=== PATIENT | female | born 1950 | race Caucasian/White ===

== ENCOUNTER 2016-11-04 22:07 | Emergency (ER) | payer MEDICARE, BC ==
--- NOTE | 2016-11-04 23:24 | EDM.PDOC ---
[id number] 4d MEDICAL Time Seen by Provider: 11/04/16 22:15 Source of Information: Reports: Patient, Family History Limitations: Reports: No Limitations - History of Present Illness INITIAL COMMENTS - FREE TEXT/NARRATIVE: 66-year-old female with a history of left-sided CVA initially had some mild right-sided weakness which has resolved. She underwent a left carotid endarterectomy within the last 2 weeks and is healing well but tonight wasn't feeling well, had some hand and lower extremity numbness and became very anxious. No headache. She should check her blood pressure and it was 180/100 so came into the emergency room. Her symptoms have resolved and she is already feeling better. Her initial blood pressure on arrival was 170/70. Onset: Sudden Severity: Mild Associated Symptoms: Reports: Other (Some paresthesias of her hands and feet). Denies: Fever/Chills, Headaches, Shortness of Breath neck/incision site Pain Score (Numeric/FACES): 8 - Related Data Allergies Allergy/AdvReac Type Severity Reaction Status Date / Time scopolamine Allergy Delusions Verified 11/04/16 22:24 Sulfa (Sulfonamide Allergy Nausea Verified 11/04/16 22:24 Antibiotics) Home Meds: Home Meds Carvedilol [Coreg] 6.25 mg PO BID 11/04/16 [History] LORazepam [Ativan] 1 mg PO Q6HR PRN 11/04/16 [History] Lisinopril [Prinivil] 10 mg PO BID 11/04/16 [History] Pantoprazole Sodium [Protonix] 40 mg PO BID 11/04/16 [History] atorvaSTATin [Lipitor] 40 mg PO BEDTIME 11/04/16 [History] hydrALAZINE [Apresoline] 25 mg PO TID 11/04/16 [History] oxyCODONE 5 mg PO Q4HR PRN 11/04/16 [History] Past Medical History HEENT History: Reports: Impaired Vision Cardiovascular History: Reports: Afib 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 History: Reports: Chronic Constipation 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: Musculoskeletal History: Reports: Gout, Neck Pain, Chronic Neurological History: Reports: CVA, Headaches, Chronic Psychiatric History: Reports: Anxiety Hematologic History: Reports: Other (See Below) Other Hematologic History: Von Willebrands disease - Infectious Disease History Infectious Disease History: Reports: Chicken Pox, Measles, Mumps, Rubella Other Infectious Disease History: unknown - Past Surgical History Cardiovascular Surgical History: Reports: Carotid Endarterectomy, Other (See Below) Other Cardiovascular Surgeries/Procedures: carotid surgery Saturday10/30/16 GI Surgical History: Reports: Appendectomy, Bariatric Procedure, Other (See Below) Other GI Surgeries/Procedures: sigmoid colon resection Female Surgical History: Reports: Hysterectomy, Other (See Below) Other Female Surgeries/Procedures: mass removed from left breast Endocrine Surgical History: Reports: Other (See Below) Other Endocrine Surgeries/Procedures: Removed mass from thyroid Social & Family History - Tobacco Use Smoking Status *Q: Never Smoker - Caffeine Use Caffeine Use: Reports: None - Recreational Drug Use Recreational Drug Use: No ED ROS GENERAL - Review of Systems Review Of Systems: See Below Constitutional: Reports: Malaise. Denies: Fever, Chills HEENT: Reports: Other (She has some swelling along the left face and some drooping of the left perioral area from her surgery) Cardiovascular: Reports: No Symptoms GI/Abdominal: Reports: Constipation Skin: Reports: Other (A small amount of bruising over the recent left neck surgical area) Neurological: Denies: Headache ED EXAM, GENERAL - Physical Exam Exam: See Below Exam Limited By: No Limitations General Appearance: Alert, No Apparent Distress Eye Exam: Bilateral Eye: EOMI Throat/Mouth: Other (She does have some weakness of the left perioral muscles) Respiratory/Chest: No Respiratory Distress, Lungs Clear Cardiovascular: Regular Rate, Rhythm GI/Abdominal: Soft, Non-Tender Extremities: No Pedal Edema Neurological: Alert, Oriented, No Motor/Sensory Deficits Psychiatric: Anxious EKG INTERPRETATION Rhythm: NSR Course - Vital Signs Last Recorded V/S: Last Vital Signs Temp 97.4 F 11/04/16 22:08 Pulse 66 11/04/16 23:14 Resp 16 11/04/16 23:14 BP 130/76 11/04/16 23:14 Pulse Ox 94 L 11/04/16 23:14 - Re-Assessments/Exams Free Text/Narrative Re-Assessment/Exam: 11/05/16 00:24 An EKG was done was normal, patient continued to be reassured and her blood pressure normalized within 30 minutes. No further workup was necessary. Departure - Departure Time of Disposition: 23:49 Disposition: Home, Self-Care 01 Condition: good Clinical Impression: Reactive hypertension, Anxiety about health, Right-sided cerebrovascular accident (CVA) - Discharge Information Instructions: Hypertension, [id number], Panic Attacks Referrals: Kasi Chen MD [Primary Care Provider] - Forms: ED Department Discharge Care Plan Goals: Continue your regular medications and get some rest. Return any time if concerns.
[2016-11-05 00:06] VITALS: BP 130/76
== END 2016-11-04 23:35 | disposition home or self-care (01) ==
LOC: JP.ED 22:07
DX: I63.9 Cerebral infarction, unspecified (principal); I10 Essential (primary) hypertension; I48.91 Unspecified atrial fibrillation; Z88.2 Allergy status to sulfonamides; Z88.8 Allergy status to other drugs, medicaments and biological substances; Z79.899 Other long term (current) drug therapy; Z98.84 Bariatric surgery status
CPT/HCPCS: 93005; 93010; 99282; 99285-25

== ENCOUNTER 2017-06-24 08:23 | Emergency (ER) | payer MEDICARE, BC ==
--- NOTE | 2017-06-24 09:11 | EDM.PDOC ---
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 She has a very sore area on the upper edge of the sternum, pain with movement of the left arm but no pain with breathing. No diaphoresis or shortness of breath although she has had a cough for the past week which is improving. Onset: Unknown/Unsure Severity: Moderate Worsens with: Reports: Other (Palpation of the upper chest causes symptoms), Movement Left Neck Pain Score (Numeric/FACES): 8 - Related Data Allergies Allergy/AdvReac Type Severity Reaction Status Date / Time scopolamine Allergy Delusions Verified 06/24/17 08:34 Sulfa (Sulfonamide Allergy Nausea Verified 06/24/17 08:34 Antibiotics) Home Meds: Home Meds Carvedilol [Coreg] 6.25 mg PO BID 11/04/16 [History] LORazepam [Ativan] 1 mg PO Q6HR PRN 11/04/16 [History] Lisinopril [Prinivil] 10 mg PO BID 11/04/16 [History] Pantoprazole Sodium [Protonix] 40 mg PO BID 11/04/16 [History] atorvaSTATin [Lipitor] 40 mg PO BEDTIME 11/04/16 [History] hydrALAZINE [Apresoline] 25 mg PO TID 11/04/16 [History] oxyCODONE 5 mg PO Q4HR PRN 11/04/16 [History] Past Medical History HEENT History: Reports: Impaired Vision Cardiovascular History: Reports: Afib, High Cholesterol, Hypertension 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 History: Reports: Chronic Constipation 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: Musculoskeletal History: Reports: Gout, Neck Pain, Chronic Neurological History: Reports: CVA, Headaches, Chronic Psychiatric History: Reports: Anxiety Hematologic History: Reports: Other (See Below) Other Hematologic History: Von Willebrands disease - Infectious Disease History Infectious Disease History: Reports: Chicken Pox, Measles, Mumps, Rubella Other Infectious Disease History: unknown - Past Surgical History Cardiovascular Surgical History: Reports: Carotid Endarterectomy, Other (See Below) Other Cardiovascular Surgeries/Procedures: carotid surgery Saturday10/30/16 GI Surgical History: Reports: Appendectomy, Bariatric Procedure, Cholecystectomy , Other (See Below) Other GI Surgeries/Procedures: sigmoid colon resection Female Surgical History: Reports: Hysterectomy, Other (See Below) Endocrine Surgical History: Reports: Other (See Below) Other Endocrine Surgeries/Procedures: Removed mass from thyroid Other Oncologic Surgeries/Procedures: MASS REMOVED FROM L BREAST/NON MALIIGNANT Social & Family History - Tobacco Use Smoking Status *Q: Unknown Ever Smoked - Caffeine Use Caffeine Use: Reports: None - Recreational Drug Use Recreational Drug Use: No ED ROS GENERAL - Review of Systems Review Of Systems: See Below Constitutional: Denies: Fever, Chills, Malaise HEENT: Reports: No Symptoms Respiratory: Denies: Shortness of Breath Cardiovascular: Reports: Chest Pain, Palpitations (Occasional palpitations chronically) GI/Abdominal: Denies: Abdominal Pain : Reports: No Symptoms Musculoskeletal: Reports: Other (Has a history of recurring joint pain with hemarthrosis especially the left knee) Skin: Reports: No Symptoms Neurological: Denies: Dizziness, Headache Psychiatric: Reports: Anxiety ED EXAM, GENERAL - Physical Exam Exam: See Below Exam Limited By: No Limitations General Appearance: Alert, No Apparent Distress Eye Exam: Bilateral Eye: Normal Inspection Head: Atraumatic Neck: Other (Some palpation with tenderness along the sternocleidomastoid on the left side but especially at the sternal clavicular joint) Respiratory/Chest: No Respiratory Distress, Lungs Clear Cardiovascular: Regular Rate, Rhythm GI/Abdominal: Soft, Non-Tender Back Exam: No: Vertebral Tenderness Extremities: No: Pedal Edema Neurological: Alert, Oriented Psychiatric: Normal Affect, Normal Mood Skin Exam: Warm, Dry Course - Vital Signs Last Recorded V/S: Last Vital Signs Temp 99.0 F 06/24/17 08:30 Pulse 69 06/24/17 09:08 Resp 9 L 06/24/17 09:08 BP 164/79 H 06/24/17 09:08 Pulse Ox 97 06/24/17 09:08 - Orders/Labs/Meds Orders: Active Orders 24 hr Category Date Time Status EKG Documentation Completion [RC] ASDIRECTED Care 06/24/17 09:02 Active EKG 12 Lead [EK] Routine Ther 06/24/17 09:02 Ordered Labs: Laboratory Tests 06/24/17 06/24/17 06/24/17 Range/Units 09:10 09:10 09:10 WBC 8.8 (4.5-11.0) K/uL RBC 4.44 (3.30-5.50) M/uL Hgb 13.6 D (12.0-15.0) g/dL Hct 40.6 (36.0-48.0) % MCV 91 (80-98) fL MCH 31 (27-31) pg MCHC 34 (32-36) % Plt Count 250 (150-400) K/uL Neut % (Auto) 62 (36-66) % Lymph % (Auto) 22 L (24-44) % Cecil % (Auto) 14 H (2-6) % Eos % (Auto) 2 (2-4) % Baso % (Auto) 1 (0-1) % Sodium 139 L (140-148) mmol/L Potassium 4.2 (3.6-5.2) mmol/L Chloride 101 (100-108) mmol/L Carbon Dioxide 27 (21-32) mmol/L Anion Gap 15.2 H (5.0-14.0) mmol/L BUN 17 D (7-18) mg/dL Creatinine 0.9 (0.6-1.0) mg/dL Est Cr Clr Drug Dosing 54.58 mL/min Estimated GFR (MDRD) > 60 (>60) Glucose 106 (74-106) mg/dL Calcium 9.0 (8.5-10.1) mg/dL Troponin I < 0.017 (0.000-0.056) ng/mL - Re-Assessments/Exams Free Text/Narrative Re-Assessment/Exam: 06/24/17 09:12 EKG was done which was normal and unchanged from 5-17. For reassurance a two- view chest x-ray, troponin, CBC and BMP were obtained. 06/24/17 09:42 Chest x-ray was normal, labs were normal. Patient is given a take an anti- inflammatory before bedtime and increase activity as tolerated. Recheck 2-3 days if not improving satisfactorily. Departure - Departure Time of Disposition: 10:08 Disposition: Home, Self-Care 01 Condition: Good Clinical Impression: Sternoclavicular joint pain Qualifiers: Laterality: left Qualified Code(s): M25.512 - Pain in left shoulder Instructions: Joint Pain, [id number] Referrals: Kasi Chang MD [Primary Care Provider] - Forms: ED Department Discharge Additional Instructions: May be beneficial. Anti-inflammatories such as naproxen or ibuprofen, especially at bedtime will help. Increase activity as tolerated and consider rechecking in 3-4 days if not improving satisfactorily, or return anytime sooner if worsening. Care Plan Goals: Heating pad to joint along with anti-inflammatories may help. Increase activity as tolerated and consider rechecking in 2-4 days if not improving satisfactorily. An anti-inflammatory at bedtime may be the most beneficial. - My Orders Last 24 Hours: My Active Orders 06/24/17 09:02 EKG Documentation Completion [RC] ASDIRECTED EKG 12 Lead [EK] Routine - Assessment/Plan Last 24 Hours: My Active Orders 06/24/17 09:02 EKG Documentation Completion [RC] ASDIRECTED EKG 12 Lead [EK] Routine
[2017-06-24 09:53] VITALS: BP 164/79
--- NOTE | 2017-06-24 10:41 | CR ---
Chest 2V HISTORY: Dyspnea COMPARISON: None FINDINGS: Cardiac size and pulmonary vessels normal. Lungs are clear. No effusions. Impression: No acute pulmonary disease.
== END 2017-06-24 10:00 | disposition home or self-care (01) ==
LOC: JP.ED 08:23
DX: M25.512 Pain in left shoulder (principal); I10 Essential (primary) hypertension; F41.9 Anxiety disorder, unspecified; E78.00 Pure hypercholesterolemia, unspecified; Z88.2 Allergy status to sulfonamides; Z88.8 Allergy status to other drugs, medicaments and biological substances; Z86.73 Personal history of transient ischemic attack (TIA), and cerebral infarction without residual deficits
CPT/HCPCS: 36415; 71046; 71046-26; 80048; 84484; 85025; 93005; 93010; 99284-25; 99285

== ENCOUNTER 2019-02-18 05:53 | Day surgery (SDC) | payer MEDICARE ==
[2019-02-18] MEDS ORDERED: Nozin Nasal Sanitizer NASBOTH ONE (06:15)
[2019-02-18] MEDS ORDERED: Lactated Ringers 1,000 ML IV SCH (06:30)
[2019-02-18] MEDS ORDERED: ceFAZolin 1 GM in Premix Bag 1 BAG IV ONE (06:30)
[2019-02-18] MEDS ORDERED: Bupivacaine 0.5% 30 ML SDV ONE (06:59)
[2019-02-18] MEDS ORDERED: fentaNYL 250 MCG/5 ML SDV ONE (07:35)
[2019-02-18] MEDS ORDERED: Succinylcholine 200 MG/10 ML MDV ONE (07:36)
[2019-02-18] MEDS ORDERED: Rocuronium 50 MG/5 ML Vial ONE (07:36)
[2019-02-18] MEDS ORDERED: Ondansetron 4 MG/2 ML SDV ONE (07:36)
[2019-02-18] MEDS ORDERED: Dexamethasone 4 MG/ML SDV ONE (07:36)
[2019-02-18] MEDS ORDERED: Propofol 200 MG/20 ML SDV ONE (07:36)
[2019-02-18] MEDS ORDERED: Acetaminophen/HYDROcodone 325-5 MG Tab PO PRN (09:17)
[2019-02-18 10:59] VITALS: BP 172/91
--- NOTE | 2019-02-19 08:02 | OR ---
DATE OF PROCEDURE: 02/18/2019 SURGEON: Maximiliano Yu MD PREOPERATIVE DIAGNOSIS: Medial meniscus tear, left knee. POSTOPERATIVE DIAGNOSES: 1. Degenerative meniscus, left knee, medial. 2. Chondromalacia, medial femoral condyle, grade 3. 3. Chondromalacia, patellofemoral joint, grade 3. ANESTHESIA: General. PROCEDURE: 1. Arthroscopy, left knee, with debridement of medial meniscus. 2. Chondroplasty, medial femoral condyle. INDICATIONS: Ms. Jordan is a 68-year-old female with a history of persistent left knee pain, particularly in the medial aspect. She has failed conservative treatment. X-ray and MRI are consistent with degenerative tear of the medial meniscus. She now presents to the operating room for arthroscopic evaluation, partial meniscectomy as needed. Risks, benefits, and potential complications were discussed. DESCRIPTION OF PROCEDURE: After adequate anesthesia was obtained, the patient was placed supine with the tourniquet about the left upper thigh. Left leg was prepped and draped in a sterile fashion. Leg was exsanguinated, and tourniquet inflated to 300 mmHg pressure. Standard inferior, medial, and lateral portals were established. Patellofemoral joint was inspected. This revealed intact articular cartilage on the patella with some minimal softening. Patella tracked well with no evidence of significant malalignment. Trochlear groove showed grade 3 changes with a trough down the middle of the trochlea and a more extended area of grade 2 and grade 3 changes more distally. The scope was positioned into the medial compartment and grade 3 changes of the medial femoral condyle were noted. Degenerative fraying of the medial meniscus was present in the midbody and posterior horn, extending into the root. No significant peripheral tear or unstable portions of the meniscus were noted. Shaver was used to debride the edge of the meniscus and to perform a chondroplasty over the medial femoral condyle, removing loose articular fragments. All loose fragments were removed from the medial joint. Intercondylar notch revealed an intact ACL and PCL. Lateral compartment showed very minimal degenerative fraying of the lateral meniscus and predominantly intact articular cartilage with some mild softening of the femoral condyle. The knee was inspected once again. No other abnormalities were identified. All loose fragments were removed. The knee was drained. Scope was withdrawn. Port sites were closed in a standard fashion, and a sterile dressing was applied. The patient tolerated procedure well. There were no complications. Taken from the operating room in stable condition. Maximiliano Yu MD /[id number]
== END 2019-02-18 11:10 | disposition home or self-care (01) ==
LOC: JP.SDS 05:53
PROVIDERS: ATTEND Specialist
DX: M23.322 Other meniscus derangements, posterior horn of medial meniscus, left knee (principal); M23.332 Other meniscus derangements, other medial meniscus, left knee; M22.42 Chondromalacia patellae, left knee; I10 Essential (primary) hypertension; E78.5 Hyperlipidemia, unspecified; I48.91 Unspecified atrial fibrillation; D68.0 Von Willebrand disease; E07.9 Disorder of thyroid, unspecified; Z88.6 Allergy status to analgesic agent; Z88.2 Allergy status to sulfonamides; Z88.5 Allergy status to narcotic agent; Z88.8 Allergy status to other drugs, medicaments and biological substances; Z86.79 Personal history of other diseases of the circulatory system; Z79.899 Other long term (current) drug therapy
CPT/HCPCS: 29881; A9270; J0330; J0690; J1100; J2405; J2704; J3010; J3490; J7120

== ENCOUNTER 2019-03-29 16:29 | Emergency (ER) | payer MEDICARE ==
[2019-03-29 16:41] VITALS: BP 176/67; PULSE 76
--- NOTE | 2019-03-29 17:41 | EDM.PDOC ---
ED HPI GENERAL MEDICAL PROBLEM - General Chief Complaint: Eye Problems Stated Complaint: BLURRED VISION, HIGH BP Time Seen by Provider: 03/29/19 17:00 Source of Information: Reports: Patient, RN Notes Reviewed History Limitations: Reports: No Limitations - History of Present Illness INITIAL COMMENTS - FREE TEXT/NARRATIVE: 60-year-old female presents emergency department today with complaint of change in vision in her right eye she states 2 days ago she had a headache then visualized a black ribbon in her right eye I went to bed the following day then she woke up she seemed flashing lights in the right eye described as a lightning then it was like a curtain came over her right eye and is now cloudy - Related Data Allergies Allergy/AdvReac Type Severity Reaction Status Date / Time scopolamine Allergy Delusions Verified 03/29/19 16:48 Sulfa (Sulfonamide AdvReac Nausea Verified 03/29/19 16:48 Antibiotics) Home Meds: Home Meds LORazepam [Ativan] 1 mg PO Q6HR PRN 11/04/16 [History] Lisinopril [Prinivil] 20 mg PO DAILY 11/04/16 [History] atorvaSTATin [Lipitor] 40 mg PO BEDTIME 11/04/16 [History] Furosemide [Lasix] 20 mg PO DAILY 02/10/19 [History] traZODone 50 mg PO BEDTIME 02/18/19 [History] Celecoxib [CeleBREX] 200 mg PO DAILY PRN #60 cap 03/26/19 [Rx] Past Medical History HEENT History: Reports: Impaired Vision Cardiovascular History: Reports: Afib, High Cholesterol, Hypertension 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 History: Reports: Chronic Constipation 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: Musculoskeletal History: Reports: Gout, Neck Pain, Chronic, Other (See Below) Other Musculoskeletal History: s/p L knee scope 02/18/19 Neurological History: Reports: CVA, Headaches, Chronic Psychiatric History: Reports: Anxiety Hematologic History: Reports: Other (See Below) Other Hematologic History: Von Willebrands disease - Infectious Disease History Infectious Disease History: Reports: Chicken Pox, Measles, Mumps, Rubella Other Infectious Disease History: unknown - Past Surgical History Cardiovascular Surgical History: Reports: Carotid Endarterectomy, Other (See Below) Other Cardiovascular Surgeries/Procedures: carotid surgery Saturday10/30/16 GI Surgical History: Reports: Appendectomy, Cholecystectomy, Other (See Below) Other GI Surgeries/Procedures: sigmoid colon resection Female Surgical History: Reports: Hysterectomy, Other (See Below) Endocrine Surgical History: Reports: Other (See Below) Other Endocrine Surgeries/Procedures: Removed mass from thyroid Other Oncologic Surgeries/Procedures: MASS REMOVED FROM L BREAST/NON MALIIGNANT Social & Family History - Family History Respiratory: Reports: COPD : Reports: Renal Calculus OBGYN: Reports: Dysfunctional uterine bleeding, Endometriosis Oncologic: Reports: Bone, Breast, Colon - Tobacco Use Smoking Status *Q: Never Smoker - Caffeine Use Caffeine Use: Reports: None ED ROS GENERAL - Review of Systems Review Of Systems: See Below HEENT: Reports: Vision Change ED EXAM GENERAL W FULL EYE - Physical Exam Exam: See Below Exam Limited By: No Limitations General Appearance: Alert, WD/WN, No Apparent Distress Visual Acuity (R) 20/: 40 Visual Acuity (L) 20/: 25 With Correction: Yes Eyelids: Bilateral: Normal Appearance Conjunctiva & Sclera: Bilateral: Normal Appearance Cornea Exam: Bilateral: Normal Appearance Extraocular Movements: Bilateral: Intact Pupils: Normal Accommodation Pupillary Size: Bilateral: 5 mm Pupillary Reaction: Bilateral: Brisk Anterior Chamber: Bilateral: Normal Appearance Posterior Chamber: Bilateral: Normal Funduscopic Course - Vital Signs Last Recorded V/S: Last Vital Signs Temp 97.0 F 03/29/19 16:59 Pulse 76 03/29/19 16:59 Resp 16 03/29/19 16:59 BP 176/67 H 03/29/19 16:59 Pulse Ox 97 03/29/19 16:59 Departure - Departure Time of Disposition: 17:43 Disposition: DC/Tfer to Other 70 Condition: Fair Clinical Impression: Change in vision - Discharge Information Referrals: Kasi Chang MD [Primary Care Provider] - Additional Instructions: Please report to Dr. Pugh's office at [address] [facility] he has your cell phone number he's expecting you about 7 PM this evening - Assessment/Plan Plan: Assessment Acuity = acute Site and laterality = change in vision concern for retinal detachment Etiology = unknown Manifestations = unknown Location of injury = Home Lab values = none Plan Called discussed case with Dr. Pugh ophthalmology on-call Cata Conleyford he kindly agreed to evaluate the patient in his office this evening, she is transported via private vehicle with her This note was dictated using [employer] voice recognition software please call with any questions on syntax or grammar.
== END 2019-03-29 17:52 | disposition other institution (70) ==
LOC: JP.ED 16:29
DX: H53.8 Other visual disturbances (principal); I10 Essential (primary) hypertension; E78.00 Pure hypercholesterolemia, unspecified; F41.9 Anxiety disorder, unspecified; Z88.2 Allergy status to sulfonamides; Z88.8 Allergy status to other drugs, medicaments and biological substances; Z79.899 Other long term (current) drug therapy; Z86.73 Personal history of transient ischemic attack (TIA), and cerebral infarction without residual deficits
CPT/HCPCS: 99283

== ENCOUNTER 2019-06-22 11:07 | Emergency (ER) | payer MEDICARE ==
--- NOTE | 2019-06-22 11:42 | EDM.PDOC ---
ED HPI GENERAL MEDICAL PROBLEM - General Chief Complaint: Chest Pain Stated Complaint: CHEST DISCOMFORT,ARM PAIN Time Seen by Provider: 06/22/19 11:37 Source of Information: Reports: Patient, Family, Old Records, RN Notes Reviewed History Limitations: Reports: No Limitations - History of Present Illness INITIAL COMMENTS - FREE TEXT/NARRATIVE: 69-year-old female presents emergency department today complaint of heavy lymph nodes and chest pressure, she states she has been ill for about 3 days the reason she presented to the emergency department today if she "just cannot take it anymore". She is a vague and difficult historian does have a history of hypertension which is usually controlled uses a water pill intermittently did have headache last night with elevated blood pressure does have a history of breast tumor status post resection. chest pressure Pain Score (Numeric/FACES): 8 - Related Data Allergies Allergy/AdvReac Type Severity Reaction Status Date / Time scopolamine Allergy Delusions Verified 06/22/19 11:24 Sulfa (Sulfonamide AdvReac Nausea Verified 06/22/19 11:24 Antibiotics) Home Meds: Home Meds LORazepam [Ativan] 1 mg PO Q6HR PRN 11/04/16 [History] Lisinopril [Prinivil] 20 mg PO DAILY 11/04/16 [History] atorvaSTATin [Lipitor] 40 mg PO BEDTIME 11/04/16 [History] Furosemide [Lasix] 20 mg PO DAILY 02/10/19 [History] traZODone 50 mg PO BEDTIME 02/18/19 [History] Celecoxib [CeleBREX] 200 mg PO DAILY PRN #60 cap 03/26/19 [Rx] Past Medical History HEENT History: Reports: Impaired Vision Cardiovascular History: Reports: Afib, High Cholesterol, Hypertension 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 History: Reports: Chronic Constipation 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: Musculoskeletal History: Reports: Gout, Neck Pain, Chronic, Other (See Below) Other Musculoskeletal History: s/p L knee scope 02/18/19 Neurological History: Reports: CVA, Headaches, Chronic Psychiatric History: Reports: Anxiety Hematologic History: Reports: Other (See Below) Other Hematologic History: Von Willebrands disease - Infectious Disease History Infectious Disease History: Reports: Chicken Pox, Measles, Mumps, Rubella Other Infectious Disease History: unknown - Past Surgical History Head Surgeries/Procedures: Reports: None Cardiovascular Surgical History: Reports: Carotid Endarterectomy, Other (See Below) Other Cardiovascular Surgeries/Procedures: carotid surgery Saturday10/30/16 GI Surgical History: Reports: Appendectomy, Cholecystectomy, Other (See Below) Other GI Surgeries/Procedures: sigmoid colon resection Female Surgical History: Reports: Hysterectomy, Other (See Below) Endocrine Surgical History: Reports: Other (See Below) Other Endocrine Surgeries/Procedures: Removed mass from thyroid Musculoskeletal Surgical History: Reports: Arthroscopic Knee Other Oncologic Surgeries/Procedures: MASS REMOVED FROM L BREAST/NON MALIIGNANT Social & Family History - Family History Respiratory: Reports: COPD : Reports: Renal Calculus OBGYN: Reports: Dysfunctional uterine bleeding, Endometriosis Oncologic: Reports: Bone, Breast, Colon - Tobacco Use Smoking Status *Q: Never Smoker - Caffeine Use Caffeine Use: Reports: None ED ROS GENERAL - Review of Systems Review Of Systems: See Below Constitutional: Reports: Fatigue. Denies: Fever, Chills HEENT: Reports: No Symptoms Respiratory: Reports: No Symptoms Cardiovascular: Reports: Chest Pain GI/Abdominal: Reports: No Symptoms : Reports: No Symptoms Musculoskeletal: Reports: No Symptoms Skin: Reports: No Symptoms Neurological: Reports: No Symptoms ED EXAM, GENERAL - Physical Exam Exam: See Below Exam Limited By: No Limitations General Appearance: Alert, WD/WN, No Apparent Distress Throat/Mouth: No Airway Compromise Head: Atraumatic, Normocephalic Neck: Normal Inspection, Supple, Non-Tender, Full Range of Motion Respiratory/Chest: No Respiratory Distress, Lungs Clear, Normal Breath Sounds, No Accessory Muscle Use, Other (Tenderness to palpation mid axillary line T5-6 region) Cardiovascular: Regular Rate, Rhythm, No Murmur GI/Abdominal: Soft, Non-Tender Back Exam: Normal Inspection, Full Range of Motion. No: CVA Tenderness (R), CVA Tenderness (L) Extremities: Normal Inspection, No Pedal Edema Course - Vital Signs Last Recorded V/S: Last Vital Signs Temp 98.2 F 06/22/19 11:26 Pulse 77 06/22/19 11:26 Resp 15 06/22/19 11:26 BP 152/75 H 06/22/19 11:26 Pulse Ox 97 06/22/19 11:26 - Orders/Labs/Meds Orders: Active Orders 24 hr Category Date Time Status Cardiac Monitoring [RC] .As Directed Care 01/06/20 11:38 Active EKG Documentation Completion [RC] ASDIRECTED Care 06/22/19 11:39 Active EKG 12 Lead [EK] Stat Ther 06/22/19 11:39 Ordered Labs: Laboratory Tests 06/22/19 06/22/19 06/22/19 Range/Units 11:48 11:48 11:48 WBC 7.1 (4.5-11.0) K/uL RBC 4.21 (3.30-5.50) M/uL Hgb 13.0 (12.0-15.0) g/dL Hct 39.4 (36.0-48.0) % MCV 94 (80-98) fL MCH 31 (27-31) pg MCHC 33 (32-36) % Plt Count 228 (150-400) K/uL Neut % (Auto) 71 H (36-66) % Lymph % (Auto) 17 L (24-44) % [place] % (Auto) 11 H (2-6) % Eos % (Auto) 1 L (2-4) % Baso % (Auto) 0 (0-1) % Sodium 136 L (140-148) mmol/L Potassium 3.9 (3.6-5.2) mmol/L Chloride 102 (100-108) mmol/L Carbon Dioxide 26 (21-32) mmol/L Anion Gap 11.9 (5.0-14.0) mmol/L BUN 13 (7-18) mg/dL Creatinine 0.8 (0.6-1.0) mg/dL Est Cr Clr Drug Dosing TNP Estimated GFR (MDRD) > 60 (>60) Glucose 107 H (74-106) mg/dL Lactic Acid 0.9 (0.4-2.0) mmol/L Calcium 8.3 L (8.5-10.1) mg/dL Total Bilirubin 0.2 (0.2-1.0) mg/dL AST 20 D (15-37) U/L ALT 25 (12-78) U/L Alkaline Phosphatase 94 (46-116) U/L Troponin I < 0.017 (0.000-0.056) ng/mL Total Protein 6.7 (6.4-8.2) g/dL Albumin 3.6 (3.4-5.0) g/dL Globulin 3.1 (2.3-3.5) g/dL Albumin/Globulin Ratio 1.2 (1.2-2.2) Urine Color (YELLOW) Urine Appearance (CLEAR) Urine pH (5.0-8.0) Ur Specific [place] (1.008-1.030) Urine Protein (NEGATIVE) mg/dL Urine Glucose (UA) (NEGATIVE) mg/dL Urine Ketones (NEGATIVE) mg/dL Urine Occult Blood (NEGATIVE) Urine Nitrite (NEGATIVE) Urine Bilirubin (NEGATIVE) Urine Urobilinogen (0.2-1.0) EU/dL Ur Leukocyte Esterase (NEGATIVE) Urine RBC (0-5) Urine WBC (0-5) Ur Epithelial Cells Amorphous Sediment Urine Bacteria Urine Mucus 06/22/19 Range/Units 11:59 WBC (4.5-11.0) K/uL RBC (3.30-5.50) M/uL Hgb (12.0-15.0) g/dL Hct (36.0-48.0) % MCV (80-98) fL MCH (27-31) pg MCHC (32-36) % Plt Count (150-400) K/uL Neut % (Auto) (36-66) % Lymph % (Auto) (24-44) % [place] % (Auto) (2-6) % Eos % (Auto) (2-4) % Baso % (Auto) (0-1) % Sodium (140-148) mmol/L Potassium (3.6-5.2) mmol/L Chloride (100-108) mmol/L Carbon Dioxide (21-32) mmol/L Anion Gap (5.0-14.0) mmol/L BUN (7-18) mg/dL Creatinine (0.6-1.0) mg/dL Est Cr Clr Drug Dosing Estimated GFR (MDRD) (>60) Glucose (74-106) mg/dL Lactic Acid (0.4-2.0) mmol/L Calcium (8.5-10.1) mg/dL Total Bilirubin (0.2-1.0) mg/dL AST (15-37) U/L ALT (12-78) U/L Alkaline Phosphatase (46-116) U/L Troponin I (0.000-0.056) ng/mL Total Protein (6.4-8.2) g/dL Albumin (3.4-5.0) g/dL Globulin (2.3-3.5) g/dL Albumin/Globulin Ratio (1.2-2.2) Urine Color Yellow (YELLOW) Urine Appearance Clear (CLEAR) Urine pH 5.5 (5.0-8.0) Ur Specific [place] 1.015 (1.008-1.030) Urine Protein Negative (NEGATIVE) mg/dL Urine Glucose (UA) Negative (NEGATIVE) mg/dL Urine Ketones Negative (NEGATIVE) mg/dL Urine Occult Blood Negative (NEGATIVE) Urine Nitrite Negative (NEGATIVE) Urine Bilirubin Negative (NEGATIVE) Urine Urobilinogen 0.2 (0.2-1.0) EU/dL Ur Leukocyte Esterase Negative (NEGATIVE) Urine RBC Not seen (0-5) Urine WBC Not seen (0-5) Ur Epithelial Cells Not seen Amorphous Sediment Not seen Urine Bacteria Not seen Urine Mucus Few Departure - Departure Time of Disposition: 13:10 Disposition: Home, Self-Care 01 Condition: Fair Clinical Impression: Atypical chest pain Referrals: Kasi Chang MD [Primary Care Provider] - Forms: ED Department Discharge Additional Instructions: Continue with your regular medications, please followup with your primary care provider in 3-5 days if not better, please call return to the emergency department with worsening of symptoms. Sepsis Event Note - Evaluation Sepsis Screening Result: No Definite Risk - Focused Exam Vital Signs: Vital Signs Temp Pulse Resp BP Pulse Ox 06/22/19 11:26 98.2 F 77 15 152/75 H 97 06/22/19 11:23 98.2 F 77 15 152/75 H 97 Date Exam was Performed: 06/22/19 Time Exam was Performed: 13:09 - My Orders Last 24 Hours: My Active Orders 06/22/19 11:38 Cardiac Monitoring [RC] .As Directed 06/22/19 11:39 EKG Documentation Completion [RC] ASDIRECTED EKG 12 Lead [EK] Stat - Assessment/Plan Last 24 Hours: My Active Orders 06/22/19 11:38 Cardiac Monitoring [RC] .As Directed 06/22/19 11:39 EKG Documentation Completion [RC] ASDIRECTED EKG 12 Lead [EK] Stat Plan: Assessment Acuity = acute Site and laterality = atypical chest pain Etiology = unknown Manifestations = none Location of injury = Home Lab values = CBC, CMP, troponin, lactic acid, urinalysis EKG and chest x-ray all within normal limits Plan I did review lab tests with her we did not find any etiology for her symptoms that she is feeling recommend she follow-up with her primary care in 3 to 5 days for reevaluation This note was dictated using [email or web address] voice recognition software please call with any questions on syntax or grammar.
--- NOTE | 2019-06-22 12:15 | CR ---
CHEST: 2 view CLINICAL HISTORY:Chest pain COMPARISON:06/24/2017 FINDINGS: The heart size, pulmonary vascular and hilar structures are normal. No infiltrate effusion or pneumothorax is seen. IMPRESSION: No acute cardiopulmonary process.
[2019-06-22 13:24] VITALS: BP 152/75; PULSE 77
== END 2019-06-22 13:20 | disposition home or self-care (01) ==
LOC: JP.ED 11:07
DX: R07.89 Other chest pain (principal); I10 Essential (primary) hypertension; I48.91 Unspecified atrial fibrillation; Z86.73 Personal history of transient ischemic attack (TIA), and cerebral infarction without residual deficits; F41.9 Anxiety disorder, unspecified; M10.9 Gout, unspecified; Z90.710 Acquired absence of both cervix and uterus; Z88.2 Allergy status to sulfonamides; Z88.8 Allergy status to other drugs, medicaments and biological substances; Z79.899 Other long term (current) drug therapy
CPT/HCPCS: 36415; 71046; 71046-26; 80053; 81001; 83605; 84484; 85025; 93005; 93010; 99283; 99285-25

== ENCOUNTER 2021-03-06 08:01 | Day surgery (SDC) | payer MEDICARE ==
[~2021-03-06 08:01] MED LIST: Bupivacaine 0.5% 30 ML SDV ONE
[2021-03-06] MEDS ORDERED: Nozin Nasal Sanitizer NASBOTH SCH (09:00)
[2021-03-06] MEDS ORDERED: Lactated Ringers 1,000 ML IV SCH (09:30)
[2021-03-06] MEDS ORDERED: ceFAZolin 2 GM in Sodium Chloride 0.9% 100 ML IV ONE (10:15)
[2021-03-06] MEDS ORDERED: ceFAZolin 2 GM in Premix Bag 1 BAG IV ONE (10:15)
[2021-03-06] MEDS ORDERED: Glycopyrrolate 0.2 MG/ML 5 ML MDV ONE (10:43)
[2021-03-06] MEDS ORDERED: Ondansetron 4 MG/2 ML SDV ONE (10:43)
[2021-03-06] MEDS ORDERED: Propofol 200 MG/20 ML SDV ONE (10:43)
[2021-03-06] MEDS ORDERED: Dexamethasone 4 MG/ML SDV ONE (10:43)
[2021-03-06] MEDS ORDERED: Rocuronium 50 MG/5 ML Vial ONE ×2 (10:43→13:24)
[2021-03-06] MEDS ORDERED: Neostigmine Methylsulfate 1 MG/ML 5 ML Syringe ONE (10:43)
[2021-03-06] MEDS ORDERED: fentaNYL 250 MCG/5 ML SDV ONE ×2 (10:44→13:02)
[2021-03-06] MEDS: Bupivacaine 0.5% 50 ML MDV ONE ×2 (13:15→14:15)
[2021-03-06] MEDS ORDERED: Lactated Ringers 1,000 ML ONE (13:55)
[2021-03-06] MEDS ORDERED: Ondansetron 4 MG/2 ML SDV IVPUSH ONE (16:27)
[2021-03-06] MEDS ORDERED: Acetaminophen/HYDROcodone 325-5 MG Tab PO ONE (16:30)
[2021-03-06 18:05] VITALS: BP 178/83; PULSE 67
--- NOTE | 2021-03-20 22:32 | OR ---
DATE OF PROCEDURE: 03/06/2021 SURGEON: Maximiliano Yu MD PREOPERATIVE DIAGNOSES: 1. Degenerative labral tear, right hip. 2. Effusion, right hip. 3. Trochanteric bursitis, possible abductors tendon tear, right hip. POSTOPERATIVE DIAGNOSES: 1. Degenerative labral tear, right hip, anterior. 2. Chondrocalcinosis, right hip with effusion. 3. Trochanteric bursitis. 4. Intra-articular synovitis. PROCEDURES: 1. Arthroscopy of right hip with debridement of labrum. 2. Decompression of effusion. 3. Lateral hip space arthroscopy with debridement of bursa. BUSINESS SERVICES SPECIALIST SALES: GRACIA Nevarez ANESTHESIA: Spinal with sedation. INDICATIONS: Elaine is a 70-year-old female with a history of fairly rapid progression of acute right hip pain. She has had difficulty with weightbearing, sensation of giving, difficulty flexing her right hip pain, pain interfering with sleep and any activities. Examination and imaging are consistent with a fairly significant effusion in the right hip. Evidence of some mild degenerative changes, trochanteric bursitis, and possible small gluteus medius tendon tear versus tendinitis or tendinosis. Due to significant pain and no improvement with nonoperative measures. She is taken to the operating room for evaluation of the right hip and possible repair of abductor tendon. Risks, benefits, and potential complications of the procedure were discussed. DESCRIPTION OF PROCEDURE: After adequate anesthesia was obtained, the patient was placed on the fracture table supine. A large padded perineal post was utilized. The right hip was prepped and draped in a sterile fashion. Gentle counter traction placed on the left leg. Traction was placed on the right leg producing approximately 1 cm of distraction. A long spinal needle was advanced in anterolateral position over the trochanter and into the joint and position confirmed on fluoroscopy. Guidewire was placed through the spinal needle. A small stab incision was made in the skin and the arthroscopic cannula was placed over the guidewire. Upon removal of the obturator hip effusion with normal-appearing synovial fluid was released. This was a fairly significant amount for a hip. The scope was introduced and labrum was identified with some fraying anteriorly and an accessory anterolateral portal was established under direct visualization and fluoroscopic assistance with a spinal needle. A guidewire was placed through the needle. A small stab incision made in the skin and an additional arthroscopy cannula was advanced into the joint. A long handled [place] blade was utilized to make a capsulotomy connecting the two portals. The remainder of the hip was inspected. Again, degenerative changes were noted with fraying of the anterior labrum. Multiple white flecks were present throughout the labrum and articular cartilage consistent with chondrocalcinosis. Articular cartilage of the femoral head was relatively intact with minimal degenerative change. Mild grade 2 changes were noted along the acetabular rim adjacent to the labrum without any areas of full-thickness cartilage loss. Similar changes with chondrocalcinosis noted in the central portion of the acetabulum and again no full- thickness loss on the femoral head or central acetabulum. The scope was switched between the two portals. No other abnormalities were identified. After debriding the torn portion of the labrum, the scope was removed and distraction was released on the hip. Using fluoroscopy and using the anterolateral portal, access was gained to the lateral hip space over the greater trochanter, and an accessory inferior lateral portal was established. Moderate inflammation was noted of the trochanteric bursa, which was fairly well defined. This was debrided using a combination of a shaver and radiofrequency ablation. The trochanter with attachments of the gluteus medius and vastus lateralis was well visualized with no evidence of abductor tendon tear. The tendon was palpated with no areas of softening or evidence of partial-thickness tear. The scope was withdrawn. Port sites were closed with 3-0 Monocryl in an interrupted fashion. Steri-Strips were applied. All port sites were infiltrated with 0.5% Marcaine and the long spinal needle used to infiltrate the hip capsule. A sterile dressing was applied. The patient taken from the operating room in stable condition. Maximiliano Yu MD /[id number] [place]
== END 2021-03-06 18:40 | disposition home or self-care (01) ==
LOC: JP.SDS 08:01 → JP.MS 15:10 → JP.SDS 18:40
PROVIDERS: ATTEND Specialist
DX: S73.191A Other sprain of right hip, initial encounter (principal); S76.312A Strain of muscle, fascia and tendon of the posterior muscle group at thigh level, left thigh, initial encounter; M11.251 Other chondrocalcinosis, right hip; M70.61 Trochanteric bursitis, right hip; M65.88 Other synovitis and tenosynovitis, other site; I10 Essential (primary) hypertension; E78.5 Hyperlipidemia, unspecified; I48.91 Unspecified atrial fibrillation; Z98.890 Other specified postprocedural states; Z90.49 Acquired absence of other specified parts of digestive tract; Z79.899 Other long term (current) drug therapy; Z88.8 Allergy status to other drugs, medicaments and biological substances; Z88.2 Allergy status to sulfonamides
CPT/HCPCS: 29862; 76000; A9270; C1769; J0690; J1100; J2405; J2704; J2710; J3010; J3490; J7120

== ENCOUNTER 2022-03-26 23:25 | Inpatient (IN) | payer MEDICARE ==
[2022-03-27] MEDS ORDERED: Acetaminophen/Codeine 300-30 MG Tab PO ONE ×4 (03:35→23:00)
[2022-03-27] MEDS ORDERED: Sodium Chloride 0.9% 1,000 ML IV ONE (03:40)
[2022-03-27] MEDS ORDERED: atorvaSTATin 20 MG Tab PO ONE (03:40)
[2022-03-27] MEDS ORDERED: LORazepam 1 MG Tab PO ONE ×3 (04:30→23:00)
[2022-03-27] MEDS ORDERED: Enoxaparin 40 MG/0.4 ML Syringe SUBCUT ONE (04:30)
[2022-03-27] MEDS ORDERED: Furosemide 20 MG Tab PO ONE (09:00)
[2022-03-27] MEDS ORDERED: Carvedilol 12.5 MG Tab PO ONE ×2 (09:00→17:00)
[2022-03-27] MEDS ORDERED: Lisinopril 20 MG Tab PO ONE (09:00)
[2022-03-27] MEDS ORDERED: Potassium Chloride 20 MEQ Tab.ER PO ONE ×2 (13:30→17:00)
[2022-03-27] MEDS ORDERED: Acetaminophen 325 MG Tab PO ONE (16:00)
[2022-03-28] MEDS ORDERED: Acetaminophen/Codeine 300-30 MG Tab PO ONE (03:35)
[2022-03-28] MEDS ORDERED: LORazepam 1 MG Tab PO ONE (08:16)
[2022-03-28] MEDS ORDERED: Enoxaparin 40 MG/0.4 ML Syringe SUBCUT ONE (09:00)
[2022-03-28] MEDS ORDERED: Furosemide 20 MG Tab PO ONE (09:00)
[2022-03-28] MEDS ORDERED: Lisinopril 20 MG Tab PO ONE (09:00)
[2022-03-28] MEDS ORDERED: Carvedilol 12.5 MG Tab PO ONE (09:00)
[2022-04-20 10:23] LABS: ESTIMATED GFR 60 mL/min (>60)
[2022-04-20 10:24] LABS: TROPONIN I HIGH SENSITIVITY 11.4 pg/mL (<=60.3)
[2022-04-20 17:32] LABS: ESTIMATED GFR 79 mL/min (>60)
[2022-04-25 05:10] LABS: DOPAMINE SEE SEP RPT; DOPAMINE, URINE SEE SEP RPT; EPINEPHRINE SEE SEP RPT; NOREPINEPHRINE SEE SEP RPT
[2022-04-25 05:11] LABS: CREATININE, URINE SEE SEP RPT; METANEPHRINE/CREATININE RATIO SEE SEP RPT; NORMETANEPHRINE/CREAT. RATIO SEE SEP RPT
== END 2022-03-28 12:05 | disposition home or self-care (01) | DRG 305 ==
LOC: JP.ED 23:25 → JP.ZCENSUS 03-27 02:30
PROVIDERS: ADMIT Hospitalist; ATTEND Hospitalist
DX: I16.1 Hypertensive emergency (principal); E78.5 Hyperlipidemia, unspecified; I10 Essential (primary) hypertension; H53.142 Visual discomfort, left eye; Z88.2 Allergy status to sulfonamides; Z88.1 Allergy status to other antibiotic agents; Z20.822 Contact with and (suspected) exposure to COVID-19
CPT/HCPCS: 36415; 70450; 80048; 80053; 80307; 82384; 82570; 84132; 84484; 84585; 85025; 85610; 85730; 86140; 93005; 96374; 96375; 99285-25; A9270-GY; J1650; J7030; U0002

== ENCOUNTER 2022-10-14 10:00 | Emergency (ER) | payer BC, MEDICARE ==
[2022-10-14 11:00] VITALS: BP 149/60
[2022-10-14] MEDS ORDERED: Sodium Chloride 0.9% 10 ML Syringe FLUSH PRN (11:05)
[2022-10-14] MEDS ORDERED: Sodium Chloride 0.9% 1,000 ML IV STA (11:05)
[2022-10-14] MEDS ORDERED: fentaNYL 100 MCG/2 ML SDV IVPUSH ONE (11:06)
[2022-10-14 11:43] LABS: ESTIMATED GFR 68 mL/min (>60)
[2022-10-14] MEDS ORDERED: Iopamidol 612 MG/ML 100 ML Bottle IV SCH (11:45)
[2022-10-14] MEDS ORDERED: Sodium Chloride 0.9% 50 ML IV SCH (11:45)
[2022-10-14] MEDS ORDERED: HYDROmorphone 0.5 MG/0.5 ML Syringe IVPUSH ONE (13:13)
[2022-10-14 13:25] VITALS: PULSE 55
== END 2022-10-14 13:50 | disposition home or self-care (01) ==
LOC: JP.ED 10:00
DX: N39.0 Urinary tract infection, site not specified (principal); I48.91 Unspecified atrial fibrillation; I10 Essential (primary) hypertension; Z86.73 Personal history of transient ischemic attack (TIA), and cerebral infarction without residual deficits; Z88.5 Allergy status to narcotic agent; Z88.2 Allergy status to sulfonamides; Z88.8 Allergy status to other drugs, medicaments and biological substances; Z79.899 Other long term (current) drug therapy
CPT/HCPCS: 36415; 74177; 74177-26; 80053; 81001; 83605; 83690; 85025; 87086; 87088; 87186; 96361; 96374; 96375; 99283; 99284-25; J1170; J3010; J3490; J7030; Q9967

== ENCOUNTER 2022-10-31 09:18 | Emergency (ER) | payer MEDICARE ==
[2022-10-31] MEDS ORDERED: Ketorolac 30 MG/ML SDV IVPUSH ONE (09:51)
[2022-10-31] MEDS ORDERED: Ondansetron 4 MG/2 ML SDV IVPUSH PRN (09:52)
[2022-10-31] MEDS ORDERED: Sodium Chloride 0.9% 1,000 ML IV SCH (10:00)
[2022-10-31 10:15] LABS: HEMATOCRIT 36.4 % (34.3-46.0); HEMOGLOBIN 12.4 g/dL (11.2-15.5); MEAN CORPUSCULAR HEMOGLOBIN 31.6 pg (31.6-35.5); MEAN CORPUSCULAR HGB CONC 34.1 g/dL (31.6-35.5); MEAN CORPUSCULAR VOLUME 92.6 fL (81.4-99.0); RED BLOOD CELL COUNT 3.93 M/uL (3.77-5.24); WHITE BLOOD CELL COUNT,WBC 12.6 K/uL (3.2-11.0)
[2022-10-31 10:30] LABS: APPEARANCE,URINE CLEAR (CLEAR); BILIRUBIN,URINE NEGATIVE (NEGATIVE); COLOR,URINE YELLOW (YELLOW); GLUCOSE,URINE NEGATIVE (NEGATIVE); KETONES,URINE NEGATIVE (NEGATIVE); LEUKOCYTE ESTERASE,URINE NEGATIVE (NEGATIVE); NITRITE,URINE NEGATIVE (NEGATIVE); OCCULT BLOOD,URINE NEGATIVE (NEGATIVE); PROTEIN,URINE NEGATIVE (NEGATIVE); UROBILINOGEN,URINE 0.2 EU/dL (0.2-1.0)
[2022-10-31 10:38] LABS: AMORPHOUS SEDIMENT,URINE MODERATE; BACTERIA,URINE RARE; EPITHELIAL CELLS,URINE NOT SEEN; MUCUS,URINE MODERATE; RBC,URINE NOT SEEN (0-5); WBC,URINE 0-5 (0-5)
[2022-10-31] MEDS ORDERED: Acetaminophen/Codeine 300-30 MG Tab PO ONE (10:41)
[2022-10-31 10:48] LABS: ALANINE AMINOTRANSFERASE,ALT 113 U/L (12-78); ALKALINE PHOSPHATASE 93 U/L (46-116); ANION GAP 12.5 mmol/L (5.0-14.0); ASPARTATE AMNIOTRANSFERASE,AST 80 U/L (15-37); BILIRUBIN TOTAL 0.4 mg/dL (0.2-1.0); BLOOD UREA NITROGEN,BUN 11 mg/dL (7-18); CALCIUM 8.3 mg/dL (8.5-10.1); CARBON DIOXIDE,CO2 29 mmol/L (21-32); CHLORIDE,CL 99 mmol/L (100-108); CREATININE 0.9 mg/dL (0.6-1.0); EST CRCL DRUG DOSING (CG) 50.84 mL/min; ESTIMATED GFR 68 mL/min (>60); GLUCOSE RANDOM 116 mg/dL (74-106); POTASSIUM,K 3.5 mmol/L (3.6-5.2); SODIUM,NA 137 mmol/L (140-148)
[2022-10-31] MEDS ORDERED: Levofloxacin/Dextrose 5%-Water 250 MG in Premix Bag 1 BAG IV ONE (10:56)
[2022-10-31 13:25] VITALS: BP 113/50; PULSE 62
== END 2022-10-31 13:43 | disposition home or self-care (01) ==
LOC: JP.ED 09:18
DX: N39.0 Urinary tract infection, site not specified (principal); M79.10 Myalgia, unspecified site; I48.91 Unspecified atrial fibrillation; I10 Essential (primary) hypertension; Z79.899 Other long term (current) drug therapy; Z88.8 Allergy status to other drugs, medicaments and biological substances; Z88.5 Allergy status to narcotic agent; Z88.2 Allergy status to sulfonamides; Z90.49 Acquired absence of other specified parts of digestive tract
CPT/HCPCS: 36415; 74176; 80053; 81001; 83605; 84145; 85027; 87040; 96361; 96365; 96375; 99284; 99285; A9270; J1885; J1956; J2405; J7030

== ENCOUNTER 2024-05-26 03:06 | Emergency (ER) | payer MEDICARE ==
[2024-05-26] MEDS: Tranexamic Acid 1,000 MG/10 ML Vial TOP ONE (04:04)
[2024-05-26] MEDS: Tranexamic Acid 1,000 MG/10 ML Vial IVPUSH ONE (04:16)
[2024-05-26 04:17] LABS: BASOPHILS ABSOLUTE AUTO 0.05 K/uL (0.00-0.10); BASOPHILS PERCENT AUTO 0.5 % (0.1-1.3); EOSINOPHILS ABSOLUTE AUTO 0.25 K/uL (0.00-0.40); EOSINOPHILS PERCENT AUTO 2.4 % (0.0-5.4); HEMATOCRIT 35.9 % (34.3-46.0); HEMOGLOBIN 12.2 g/dL (11.2-15.5); IMMATURE GRAN ABSOLUTE AUTO 0.03 K/uL (0.00-0.23); IMMATURE GRAN PERCENT AUTO 0.3 % (0.0-0.7); LYMPHOCYTES ABSOLUTE AUTO 2.52 K/uL (0.8-3.3); LYMPHOCYTES PERCENT AUTO 24.5 % (11.4-47.7); MEAN CORPUSCULAR HEMOGLOBIN 31.6 pg (31.6-35.5); MONOCYTES PERCENT AUTO 11.7 % (3.3-12.6); NEUTROPHILS ABSOLUTE AUTO 6.24 K/uL (1.0-7.6); NEUTROPHILS PERCENT AUTO 60.6 % (40.0-78.1); PLATELET COUNT,PLT 204 K/uL (130-375); RED BLOOD CELL COUNT 3.86 M/uL (3.77-5.24); WHITE BLOOD CELL COUNT,WBC 10.3 K/uL (3.2-11.0)
[2024-05-26] MEDS ORDERED: Naloxone 0.4 MG/ML SDV IVPUSH PRN (04:23)
[2024-05-26] MEDS: HYDROmorphone 0.5 MG/0.5 ML Syringe IVPUSH ONE (04:30)
[2024-05-26 04:32] LABS: ANION GAP 9.2 mmol/L (5.0-14.0); CALCIUM 9.2 mg/dL (8.5-10.1); CREATININE 1.1 mg/dL (0.6-1.0); EST CRCL DRUG DOSING (CG) 40.38 mL/min; POTASSIUM,K 3.9 mmol/L (3.6-5.2)
[2024-05-26] MEDS: Ondansetron 4 MG/2 ML SDV IVPUSH ONE (04:34)
[2024-05-26] MEDS: Lidocaine 1% with EPINEPHrine 1:100,000 20 ML MDV INJECT ONE (06:55)
[2024-05-26 07:21] VITALS: BP 128/59; PULSE 64
== END 2024-05-26 07:52 | disposition home or self-care (01) ==
LOC: JP.ED 03:06
DX: S51.811A Laceration without foreign body of right forearm, initial encounter (principal); I10 Essential (primary) hypertension; E78.00 Pure hypercholesterolemia, unspecified; Z90.49 Acquired absence of other specified parts of digestive tract; Z90.710 Acquired absence of both cervix and uterus; Z86.73 Personal history of transient ischemic attack (TIA), and cerebral infarction without residual deficits; Z88.2 Allergy status to sulfonamides; Z88.6 Allergy status to analgesic agent; Z88.8 Allergy status to other drugs, medicaments and biological substances; Z79.899 Other long term (current) drug therapy; W01.198A Fall on same level from slipping, tripping and stumbling with subsequent striking against other object, initial encounter
CPT/HCPCS: 12004; 12034; 36415; 36430; 73080; 73090; 80048; 85025; 86850; 86900; 86901; 96374; 96375; 99283; 99284; J1171; J2405; P9017

== ENCOUNTER 2024-05-30 11:24 | Emergency (ER) | payer MEDICARE ==
[2024-05-30] MEDS ORDERED: Sodium Chloride 0.9% 10 ML Syringe FLUSH PRN (12:19)
[2024-05-30] MEDS: Tranexamic Acid 1,000 MG in Sodium Chloride 0.9% 50 ML IV ONE (12:40)
[2024-05-30] MEDS: Ondansetron 4 MG/2 ML SDV IVPUSH ONE (14:06)
[2024-05-30] MEDS: fentaNYL 100 MCG/2 ML SDV IVPUSH ONE (14:08)
[2024-05-30 14:28] VITALS: PULSE 62
[2024-05-30 15:16] VITALS: BP 155/75
== END 2024-05-30 15:38 | disposition home or self-care (01) ==
LOC: JP.ED 11:24
DX: R60.0 Localized edema (principal); I10 Essential (primary) hypertension; E78.00 Pure hypercholesterolemia, unspecified; Z90.49 Acquired absence of other specified parts of digestive tract; Z90.710 Acquired absence of both cervix and uterus; Z79.899 Other long term (current) drug therapy; Z79.82 Long term (current) use of aspirin; Z88.2 Allergy status to sulfonamides; Z88.8 Allergy status to other drugs, medicaments and biological substances
CPT/HCPCS: 36415; 36430; 73030; 85018; 86900; 86901; 96365; 96375; 99283; J2405; J3010; J3490; P9017

== ENCOUNTER 2024-06-01 08:50 | Emergency (ER) | payer MEDICARE ==
[2024-06-01 09:08] VITALS: BP 138/63; PULSE 66
[2024-06-01] MEDS: Ondansetron 4 MG Tab.DIS PO ONE (10:15)
[2024-06-01] MEDS: fentaNYL 50 MCG/ML SDV IVPUSH ONE (10:15)
== END 2024-06-01 10:40 | disposition home or self-care (01) ==
LOC: JP.ED 08:50
DX: S50.11XA Contusion of right forearm, initial encounter (principal); I10 Essential (primary) hypertension; Z86.73 Personal history of transient ischemic attack (TIA), and cerebral infarction without residual deficits; Z90.49 Acquired absence of other specified parts of digestive tract; Z90.710 Acquired absence of both cervix and uterus; Z88.2 Allergy status to sulfonamides; Z88.6 Allergy status to analgesic agent; Z88.8 Allergy status to other drugs, medicaments and biological substances; Z79.899 Other long term (current) drug therapy; X58.XXXA Exposure to other specified factors, initial encounter
CPT/HCPCS: 96374; 99283; J3010; Q0162

== ENCOUNTER 2024-09-01 18:24 | Inpatient (IN) | payer MEDICARE ==
[2024-09-01 19:28] LABS: BASOPHILS ABSOLUTE AUTO 0.04 K/uL (0.00-0.10); BASOPHILS PERCENT AUTO 0.4 % (0.1-1.3); EOSINOPHILS ABSOLUTE AUTO 0.02 K/uL (0.00-0.40); EOSINOPHILS PERCENT AUTO 0.2 % (0.0-5.4); HEMATOCRIT 41.5 % (34.3-46.0); HEMOGLOBIN 14.1 g/dL (11.2-15.5); IMMATURE GRAN ABSOLUTE AUTO 0.06 K/uL (0.00-0.23); IMMATURE GRAN PERCENT AUTO 0.6 % (0.0-0.7); LYMPHOCYTES ABSOLUTE AUTO 0.25 K/uL (0.8-3.3); LYMPHOCYTES PERCENT AUTO 2.6 % (11.4-47.7); MEAN CORPUSCULAR HEMOGLOBIN 30.9 pg (31.6-35.5); MEAN CORPUSCULAR VOLUME 90.8 fL (81.4-99.0); MONOCYTES ABSOLUTE AUTO 0.41 K/uL (0.20-0.90); MONOCYTES PERCENT AUTO 4.3 % (3.3-12.6); NEUTROPHILS ABSOLUTE AUTO 8.74 K/uL (1.0-7.6); NEUTROPHILS PERCENT AUTO 91.9 % (40.0-78.1); PLATELET COUNT,PLT 148 K/uL (130-375); RED BLOOD CELL COUNT 4.57 M/uL (3.77-5.24); WHITE BLOOD CELL COUNT,WBC 9.5 K/uL (3.2-11.0)
[2024-09-01] MEDS: Acetaminophen 500 MG Tab PO ONE (19:28)
[2024-09-01 19:30] LABS: APPEARANCE,URINE CLEAR (CLEAR); BILIRUBIN,URINE NEGATIVE (NEGATIVE); COLOR,URINE YELLOW (YELLOW); GLUCOSE,URINE NEGATIVE (NEGATIVE); KETONES,URINE NEGATIVE (NEGATIVE); LEUKOCYTE ESTERASE,URINE SMALL (NEGATIVE); NITRITE,URINE NEGATIVE (NEGATIVE); OCCULT BLOOD,URINE TRACE-INTACT (NEGATIVE); PH,URINE 5.5 (5.0-8.0); PROTEIN,URINE NEGATIVE (NEGATIVE); UROBILINOGEN,URINE 0.2 EU/dL (0.2-1.0)
[2024-09-01] MEDS: cefTRIAXone 1 GM in Sodium Chloride 0.9% 50 ML IV ONE (19:31)
[2024-09-01 19:38] LABS: BACTERIA,URINE FEW; EPITHELIAL CELLS,URINE RARE; RBC,URINE 0-5 (0-5)
[2024-09-01 19:39] LABS: AMORPHOUS SEDIMENT,URINE NOT SEEN; MUCUS,URINE NOT SEEN
[2024-09-01 19:48] LABS: A/G RATIO 1.2 (1.2-2.2); ALANINE AMINOTRANSFERASE,ALT 69 U/L (12-78); ALBUMIN 3.8 g/dL (3.4-5.0); ALKALINE PHOSPHATASE 113 U/L (46-116); ANION GAP 14.5 mmol/L (5.0-14.0); ASPARTATE AMNIOTRANSFERASE,AST 51 U/L (15-37); BILIRUBIN TOTAL 0.3 mg/dL (0.2-1.0); BLOOD UREA NITROGEN,BUN 11 mg/dL (7-18); C-REACTIVE PROTEIN 2.58 mg/dL (<0.50); CARBON DIOXIDE,CO2 27 mmol/L (21-32); CHLORIDE,CL 100 mmol/L (100-108); CREATININE 0.8 mg/dL (0.6-1.0); EST CRCL DRUG DOSING (CG) 55.52 mL/min; ESTIMATED GFR 77 mL/min (>60); GLUCOSE RANDOM 143 mg/dL (74-106); POTASSIUM,K 3.5 mmol/L (3.6-5.2); PROTEIN TOTAL,TP 7.1 g/dL (6.4-8.2); SODIUM,NA 138 mmol/L (140-148)
[2024-09-01] MEDS: Prochlorperazine 10 MG/2 ML SDV IVPUSH ONE (20:30)
[2024-09-01] MEDS: Sodium Chloride 0.9% 80 ML IV SCH (20:43)
[2024-09-01] MEDS: Iopamidol 612 MG/ML 100 ML Bottle IV SCH (20:43)
[2024-09-01] MEDS: metroNIDAZOLE/Normal Saline 500 MG in Premix Bag 1 BAG IV ONE (22:55)
[2024-09-01] MEDS: Sodium Chloride 0.9% 500 ML IV ONE (22:55)
[2024-09-01] MEDS ORDERED: Sennosides/Docusate Sodium 50-8.6 MG Tab PO PRN (23:48)
[2024-09-01] MEDS ORDERED: Ondansetron 4 MG/2 ML SDV IV PRN (23:48)
[2024-09-01] MEDS ORDERED: Sodium Chloride 0.9% 10 ML Syringe FLUSH PRN (23:48)
[2024-09-01] MEDS ORDERED: Magnesium Hydroxide 400 MG/5 ML Susp 30 ML Cup PO PRN (23:48)
[2024-09-01] MEDS ORDERED: Ondansetron 4 MG Tab.DIS PO PRN (23:48)
[2024-09-02] MEDS: Sodium Chloride 0.9% 1,000 ML IV SCH (00:38)
[2024-09-02] MEDS: Potassium Chloride 20 MEQ Tab.ER PO ONE (00:38)
[2024-09-02 05:52] LABS: BASOPHILS ABSOLUTE AUTO 0.03 K/uL (0.00-0.10); BASOPHILS PERCENT AUTO 0.4 % (0.1-1.3); EOSINOPHILS ABSOLUTE AUTO 0.06 K/uL (0.00-0.40); EOSINOPHILS PERCENT AUTO 0.8 % (0.0-5.4); HEMATOCRIT 38.6 % (34.3-46.0); HEMOGLOBIN 13.1 g/dL (11.2-15.5); IMMATURE GRAN ABSOLUTE AUTO 0.04 K/uL (0.00-0.23); IMMATURE GRAN PERCENT AUTO 0.5 % (0.0-0.7); LYMPHOCYTES ABSOLUTE AUTO 0.47 K/uL (0.8-3.3); MEAN CORPUSCULAR HEMOGLOBIN 31.1 pg (31.6-35.5); MEAN CORPUSCULAR HGB CONC 33.9 g/dL (31.6-35.5); MEAN CORPUSCULAR VOLUME 91.7 fL (81.4-99.0); MONOCYTES ABSOLUTE AUTO 0.57 K/uL (0.20-0.90); MONOCYTES PERCENT AUTO 7.2 % (3.3-12.6); NEUTROPHILS PERCENT AUTO 85.1 % (40.0-78.1); PLATELET COUNT,PLT 144 K/uL (130-375); RED BLOOD CELL COUNT 4.21 M/uL (3.77-5.24); WHITE BLOOD CELL COUNT,WBC 7.9 K/uL (3.2-11.0)
[2024-09-02] MEDS: Acetaminophen 325 MG Tab PO PRN (05:52)
[2024-09-02 06:12] LABS: ANION GAP 11.3 mmol/L (5.0-14.0); CALCIUM 8.9 mg/dL (8.5-10.1); CREATININE 0.8 mg/dL (0.6-1.0); EST CRCL DRUG DOSING (CG) 55.52 mL/min; MAGNESIUM 1.6 mg/dL (1.8-2.4); POTASSIUM,K 3.9 mmol/L (3.6-5.2)
[2024-09-02] MEDS: Carvedilol 12.5 MG Tab PO SCH (08:33)
[2024-09-02] MEDS: Bumetanide 1 MG Tab PO SCH (08:35)
[2024-09-02] MEDS: Phenazopyridine 95 MG Tab PO SCH (08:35)
[2024-09-02] MEDS: Losartan 50 MG Tab PO SCH (08:35)
[2024-09-02] MEDS: atorvaSTATin 20 MG Tab PO SCH (08:35)
[2024-09-02] MEDS ORDERED: Non-Formulary Medication 1 Each (Atorvastatin [Lipitor] 40 MG Tablet) PO SCH (09:00)
[2024-09-02] MEDS ORDERED: Carvedilol 12.5 MG Tab PO SCH ×2 (09:00)
[2024-09-02] MEDS ORDERED: Oxybutynin 5 MG Tab PO SCH (09:00)
[2024-09-02] MEDS: cefTRIAXone 1 GM in Sodium Chloride 0.9% 50 ML IV SCH (10:07)
[2024-09-02] MEDS ORDERED: cefTRIAXone 1 GM in Sodium Chloride 0.9% 50 ML IV SCH (18:00)
[2024-09-02] MEDS: Magnesium Oxide 400 MG Tab PO SCH (21:36)
[2024-09-02] MEDS: Cefdinir 300 MG Cap PO SCH (21:36)
[2024-09-03] MEDS: LORazepam 1 MG Tab PO PRN (01:14)
[2024-09-03 08:15] VITALS: BP 147/70; PULSE 74
== END 2024-09-03 09:53 | disposition home or self-care (01) | DRG 690 ==
LOC: JP.ED 18:24 → JP.MS 23:30 → JP.ED 23:41
PROVIDERS: ADMIT Nurse Practitioner; ATTEND Internal Medicine
DX: N39.0 Urinary tract infection, site not specified (principal); N30.00 Acute cystitis without hematuria; E87.1 Hypo-osmolality and hyponatremia; D68.00 Von Willebrand disease, unspecified; E86.0 Dehydration; E87.6 Hypokalemia; Z66 Do not resuscitate; Z88.5 Allergy status to narcotic agent; F41.1 Generalized anxiety disorder; H26.9 Unspecified cataract; H54.7 Unspecified visual loss; I48.91 Unspecified atrial fibrillation; I10 Essential (primary) hypertension; E78.00 Pure hypercholesterolemia, unspecified; K59.09 Other constipation; R33.9 Retention of urine, unspecified; G89.29 Other chronic pain; R51.9 Headache, unspecified; F41.9 Anxiety disorder, unspecified; Z98.890 Other specified postprocedural states; Z88.8 Allergy status to other drugs, medicaments and biological substances; Z90.49 Acquired absence of other specified parts of digestive tract; Z79.899 Other long term (current) drug therapy; Z88.2 Allergy status to sulfonamides; Z90.710 Acquired absence of both cervix and uterus; Z86.73 Personal history of transient ischemic attack (TIA), and cerebral infarction without residual deficits; M25.571 Pain in right ankle and joints of right foot
CPT/HCPCS: 36415; 71260; 74177; 80053; 81001; 83605; 83690; 85025; 86140; 87040 ×2; 87086; 87428; 96365; 96375; 99285; A9270; J0696; J0780; J1836; Q9967; 80048; 83735; 97161-GP; 99222; 99231; 99238; 99284; J7030

== ENCOUNTER 2024-09-25 09:02 | Inpatient (IN) | payer MEDICARE ==
[2024-09-25] MEDS ORDERED: Naloxone 0.4 MG/ML SDV IVPUSH PRN (09:21)
[2024-09-25] MEDS: Ondansetron 4 MG/2 ML SDV IVPUSH ONE (09:25)
[2024-09-25] MEDS: HYDROmorphone 1 MG/ML Syringe IVPUSH ONE (09:25)
[2024-09-25 09:42] LABS: BASOPHILS ABSOLUTE AUTO 0.04 K/uL (0.00-0.10); BASOPHILS PERCENT AUTO 0.5 % (0.1-1.3); EOSINOPHILS ABSOLUTE AUTO 0.21 K/uL (0.00-0.40); EOSINOPHILS PERCENT AUTO 2.5 % (0.0-5.4); HEMATOCRIT 39.2 % (34.3-46.0); IMMATURE GRAN ABSOLUTE AUTO 0.03 K/uL (0.00-0.23); IMMATURE GRAN PERCENT AUTO 0.4 % (0.0-0.7); LYMPHOCYTES ABSOLUTE AUTO 2.61 K/uL (0.8-3.3); LYMPHOCYTES PERCENT AUTO 30.6 % (11.4-47.7); MEAN CORPUSCULAR HEMOGLOBIN 30.9 pg (31.6-35.5); MEAN CORPUSCULAR HGB CONC 33.2 g/dL (31.6-35.5); MEAN CORPUSCULAR VOLUME 93.1 fL (81.4-99.0); MONOCYTES ABSOLUTE AUTO 0.74 K/uL (0.20-0.90); MONOCYTES PERCENT AUTO 8.7 % (3.3-12.6); NEUTROPHILS ABSOLUTE AUTO 4.91 K/uL (1.0-7.6); NEUTROPHILS PERCENT AUTO 57.3 % (40.0-78.1); PLATELET COUNT,PLT 175 K/uL (130-375); RED BLOOD CELL COUNT 4.21 M/uL (3.77-5.24); WHITE BLOOD CELL COUNT,WBC 8.5 K/uL (3.2-11.0)
[2024-09-25 10:03] LABS: ANION GAP 11.6 mmol/L (5.0-14.0); CALCIUM 8.6 mg/dL (8.5-10.1); CREATININE 0.8 mg/dL (0.6-1.0); EST CRCL DRUG DOSING (CG) 53.28 mL/min; POTASSIUM,K 3.6 mmol/L (3.6-5.2)
[2024-09-25] MEDS: HYDROmorphone 1 MG/ML Syringe IVPUSH PRN (10:21)
[2024-09-25] MEDS ORDERED: Propofol 200 MG/20 ML SDV ONE (10:45)
[2024-09-25] MEDS: Sodium Chloride 0.9% 1,000 ML IV ONE (13:34)
[2024-09-25] MEDS ORDERED: HYDROmorphone 0.5 MG/0.5 ML Syringe IVPUSH PRN (14:31)
[2024-09-25] MEDS ORDERED: Non-Formulary Medication 1 Each (Carvedilol [Coreg] 25 MG Tablet) PO PRN (14:31)
[2024-09-25] MEDS: Ondansetron 4 MG/2 ML SDV IV PRN (14:44)
[2024-09-25 17:26] LABS: APPEARANCE,URINE CLEAR (CLEAR); BILIRUBIN,URINE NEGATIVE (NEGATIVE); COLOR,URINE YELLOW (YELLOW); GLUCOSE,URINE NEGATIVE (NEGATIVE); KETONES,URINE NEGATIVE (NEGATIVE); LEUKOCYTE ESTERASE,URINE NEGATIVE (NEGATIVE); NITRITE,URINE NEGATIVE (NEGATIVE); OCCULT BLOOD,URINE NEGATIVE (NEGATIVE); PH,URINE 5.5 (5.0-8.0); PROTEIN,URINE NEGATIVE (NEGATIVE); UROBILINOGEN,URINE 0.2 EU/dL (0.2-1.0)
[2024-09-25 17:31] LABS: RBC,URINE 0-5 (0-5)
[2024-09-25 17:32] LABS: AMORPHOUS SEDIMENT,URINE NOT SEEN; BACTERIA,URINE RARE; EPITHELIAL CELLS,URINE FEW; MUCUS,URINE NOT SEEN; WBC,URINE 0-5 (0-5)
[2024-09-25] MEDS: LORazepam 2 MG/ML SDV IVPUSH PRN (17:56)
[2024-09-25] MEDS: Oxybutynin 5 MG Tab PO SCH (20:54)
[2024-09-25] MEDS: Melatonin 3 MG Tab PO SCH (20:54)
[2024-09-25] MEDS: CEFDINIR 300 MG PO SCH (20:56)
[2024-09-25] MEDS: Carvedilol 12.5 MG Tab **OWN MED PO SCH (20:56)
[2024-09-25] MEDS ORDERED: Carvedilol 12.5 MG Tab PO SCH (21:00)
[2024-09-25] MEDS ORDERED: Cefdinir 300 MG Cap PO SCH (21:00)
[2024-09-25] MEDS: LORazepam 1 MG Tab PO PRN (21:18)
[2024-09-25] MEDS: Acetaminophen/HYDROcodone 325-5 MG Tab PO PRN (21:18)
[2024-09-26 05:41] LABS: HEMATOCRIT 32.9 % (34.3-46.0); HEMOGLOBIN 10.9 g/dL (11.2-15.5); MEAN CORPUSCULAR HEMOGLOBIN 31.3 pg (31.6-35.5); MEAN CORPUSCULAR HGB CONC 33.1 g/dL (31.6-35.5); MEAN CORPUSCULAR VOLUME 94.5 fL (81.4-99.0); RED BLOOD CELL COUNT 3.48 M/uL (3.77-5.24)
[2024-09-26 05:57] LABS: A/G RATIO 1.1 (1.2-2.2); ALANINE AMINOTRANSFERASE,ALT 45 U/L (12-78); ALBUMIN 3.1 g/dL (3.4-5.0); ALKALINE PHOSPHATASE 91 U/L (46-116); ANION GAP 9.1 mmol/L (5.0-14.0); ASPARTATE AMNIOTRANSFERASE,AST 39 U/L (15-37); BILIRUBIN TOTAL 0.2 mg/dL (0.2-1.0); BLOOD UREA NITROGEN,BUN 13 mg/dL (7-18); CALCIUM 8.4 mg/dL (8.5-10.1); CARBON DIOXIDE,CO2 28 mmol/L (21-32); CHLORIDE,CL 103 mmol/L (100-108); CREATININE 0.8 mg/dL (0.6-1.0); ESTIMATED GFR 77 mL/min (>60); GLUCOSE RANDOM 102 mg/dL (74-106); POTASSIUM,K 3.9 mmol/L (3.6-5.2); SODIUM,NA 140 mmol/L (140-148)
[2024-09-26] MEDS: ATORVASTATIN 40 MG PO SCH (09:48)
[2024-09-26] MEDS: Bumetanide 1 MG Tab PO SCH (11:46)
[2024-09-26] MEDS: atorvaSTATin 20 MG Tab PO SCH (11:47)
[2024-09-26] MEDS: BUMETANIDE 2 MG PO SCH (11:47)
[2024-09-26] MEDS: Losartan 50 MG Tab PO SCH (11:47)
[2024-09-26] MEDS: traMADol 50 MG Tab PO PRN (16:45)
[2024-09-27] MEDS: Ondansetron 4 MG Tab.DIS PO PRN (08:34)
[2024-09-27] MEDS ORDERED: BUMETANIDE 2 MG PO SCH (09:00)
[2024-09-27] MEDS: Cefdinir 300 MG Cap PO SCH (10:04)
[2024-09-27] MEDS: Bumetanide 1 MG Tab PO SCH (10:05)
[2024-09-27] MEDS: Losartan 50 MG Tab PO SCH (10:05)
[2024-09-27] MEDS: atorvaSTATin 20 MG Tab PO SCH (10:06)
[2024-09-27] MEDS: Carvedilol 12.5 MG Tab PO SCH (10:06)
[2024-09-27] MEDS: LORazepam 1 MG Tab PO SCH (10:55)
[2024-09-27] MEDS: Acetaminophen 325 MG Tab PO PRN (21:36)
[2024-09-28 05:44] LABS: HEMATOCRIT 32.1 % (34.3-46.0); HEMOGLOBIN 10.6 g/dL (11.2-15.5); MEAN CORPUSCULAR HEMOGLOBIN 30.8 pg (31.6-35.5); MEAN CORPUSCULAR VOLUME 93.3 fL (81.4-99.0); RED BLOOD CELL COUNT 3.44 M/uL (3.77-5.24); WHITE BLOOD CELL COUNT,WBC 9.4 K/uL (3.2-11.0)
[2024-09-28 06:01] LABS: A/G RATIO 0.8 (1.2-2.2); ALANINE AMINOTRANSFERASE,ALT 36 U/L (12-78); ALKALINE PHOSPHATASE 92 U/L (46-116); ASPARTATE AMNIOTRANSFERASE,AST 20 U/L (15-37); BILIRUBIN TOTAL 0.4 mg/dL (0.2-1.0); BLOOD UREA NITROGEN,BUN 8 mg/dL (7-18); CALCIUM 8.9 mg/dL (8.5-10.1); CARBON DIOXIDE,CO2 32 mmol/L (21-32); CHLORIDE,CL 101 mmol/L (100-108); CREATININE 0.8 mg/dL (0.6-1.0); ESTIMATED GFR 77 mL/min (>60); GLUCOSE RANDOM 117 mg/dL (74-106); POTASSIUM,K 3.1 mmol/L (3.6-5.2); PROTEIN TOTAL,TP 6.6 g/dL (6.4-8.2); SODIUM,NA 141 mmol/L (140-148)
[2024-09-28 06:03] LABS: ANION GAP 11.1 mmol/L (5.0-14.0)
[2024-09-28] MEDS: Potassium Chloride 20 MEQ Tab.ER PO ONE (09:34)
[2024-09-28 13:03] VITALS: BP 142/61; PULSE 78
[2024-09-28] MEDS: Sennosides/Docusate Sodium 50-8.6 MG Tab PO PRN (13:10)
[2024-09-28] MEDS: Magnesium Hydroxide 400 MG/5 ML Susp 30 ML Cup PO PRN (13:10)
== END 2024-09-28 13:45 | DRG 562 ==
LOC: JP.ED 09:02 → JP.MS 12:42 → OBSVTOIN 09-26 16:54
PROVIDERS: ADMIT Hospitalist; ATTEND Internal Medicine
PROC: 0PSCXZZ Reposition Right Humeral Head, External Approach (ICD-10-PCS; principal; 2024-09-25)
DX: S43.014A Anterior dislocation of right humerus, initial encounter (principal); S42.201A Unspecified fracture of upper end of right humerus, initial encounter for closed fracture; S00.83XA Contusion of other part of head, initial encounter; J96.01 Acute respiratory failure with hypoxia; A69.20 Lyme disease, unspecified; S43.004A Unspecified dislocation of right shoulder joint, initial encounter; W18.30XA Fall on same level, unspecified, initial encounter; F41.1 Generalized anxiety disorder; Z88.5 Allergy status to narcotic agent; I48.91 Unspecified atrial fibrillation; Z88.8 Allergy status to other drugs, medicaments and biological substances; W01.198A Fall on same level from slipping, tripping and stumbling with subsequent striking against other object, initial encounter; E78.00 Pure hypercholesterolemia, unspecified; H26.9 Unspecified cataract; F15.90 Other stimulant use, unspecified, uncomplicated; I10 Essential (primary) hypertension; K59.09 Other constipation; R41.0 Disorientation, unspecified; Z99.81 Dependence on supplemental oxygen; Z88.6 Allergy status to analgesic agent; Z88.2 Allergy status to sulfonamides; Z86.73 Personal history of transient ischemic attack (TIA), and cerebral infarction without residual deficits; Z90.49 Acquired absence of other specified parts of digestive tract; Z79.899 Other long term (current) drug therapy; Z98.890 Other specified postprocedural states; Z90.710 Acquired absence of both cervix and uterus
CPT/HCPCS: 01620 ×2; 36415 ×2; 70450 ×2; 71250 ×2; 72125 ×2; 73030 ×4; 76377 ×2; 80048; 80053; 81001; 82550; 85025; 85027; 96374; 96375 ×2; 96376 ×3; 97116; 97161; 99223; 99285 ×2; A9270 ×16; G0378 ×3; J1171 ×3; J2060; J2405 ×2; J2704; J7030; 73140-F5; 97110-GO; 97165-GO; 99231; 99232; 99239; Q0162

== ENCOUNTER 2025-02-12 08:04 | Inpatient (IN) | payer MEDICARE ==
[2025-02-12 08:39] LABS: BASOPHILS ABSOLUTE AUTO 0.05 K/uL (0.00-0.10); BASOPHILS PERCENT AUTO 0.3 % (0.1-1.3); EOSINOPHILS ABSOLUTE AUTO 0.07 K/uL (0.00-0.40); EOSINOPHILS PERCENT AUTO 0.5 % (0.0-5.4); IMMATURE GRAN ABSOLUTE AUTO 0.13 K/uL (0.00-0.23); IMMATURE GRAN PERCENT AUTO 0.9 % (0.0-0.7); LYMPHOCYTES ABSOLUTE AUTO 0.35 K/uL (0.8-3.3); LYMPHOCYTES PERCENT AUTO 2.4 % (11.4-47.7); MONOCYTES ABSOLUTE AUTO 0.69 K/uL (0.20-0.90); MONOCYTES PERCENT AUTO 4.7 % (3.3-12.6); NEUTROPHILS ABSOLUTE AUTO 13.39 K/uL (1.0-7.6); NEUTROPHILS PERCENT AUTO 91.2 % (40.0-78.1); PLATELET COUNT,PLT 212 K/uL (130-375); RED BLOOD CELL COUNT 4.57 M/uL (3.77-5.24); WHITE BLOOD CELL COUNT,WBC 14.7 K/uL (3.2-11.0)
[2025-02-12 09:00] LABS: A/G RATIO 1.1 (1.2-2.2); ALANINE AMINOTRANSFERASE,ALT 137 U/L (12-78); ASPARTATE AMNIOTRANSFERASE,AST 103 U/L (15-37); BILIRUBIN TOTAL 0.5 mg/dL (0.2-1.0); BLOOD UREA NITROGEN,BUN 12 mg/dL (7-18); CARBON DIOXIDE,CO2 28 mmol/L (21-32); CHLORIDE,CL 103 mmol/L (100-108); CREATININE 0.8 mg/dL (0.6-1.0); EST CRCL DRUG DOSING (CG) 53.28 mL/min; ESTIMATED GFR 77 mL/min (>60); GLUCOSE RANDOM 138 mg/dL (74-106); POTASSIUM,K 3.4 mmol/L (3.6-5.2); PROTEIN TOTAL,TP 7.3 g/dL (6.4-8.2); SODIUM,NA 140 mmol/L (140-148)
[2025-02-12 09:05] LABS: LACTIC ACID 1.7 mmol/L (0.4-2.0)
[2025-02-12 10:04] LABS: APPEARANCE,URINE CLEAR (CLEAR); GLUCOSE,URINE NEGATIVE (NEGATIVE); OCCULT BLOOD,URINE NEGATIVE (NEGATIVE)
[2025-02-12 10:14] LABS: SQUAMOUS EPITHELIAL CELLS,UR RARE /HPF; UROTHELIAL CELLS,URINE NOT SEEN /HPF
[2025-02-12] MEDS: Iopamidol 755 Mg/ML 100 ML Bottle IV SCH (13:18)
[2025-02-12] MEDS: Sodium Chloride 0.9% 10 ML Syringe FLUSH PRN (13:18)
[2025-02-12] MEDS ORDERED: Ondansetron 4 MG Tab.DIS PO PRN (16:20)
[2025-02-12 16:32] LABS: INR 1.0
[2025-02-12] MEDS: Acetaminophen/HYDROcodone 325-5 MG Tab PO PRN (22:19)
[2025-02-13 05:45] LABS: BASOPHILS ABSOLUTE AUTO 0.03 K/uL (0.00-0.10); BASOPHILS PERCENT AUTO 0.3 % (0.1-1.3); EOSINOPHILS ABSOLUTE AUTO 1.06 K/uL (0.00-0.40); EOSINOPHILS PERCENT AUTO 12.2 % (0.0-5.4); IMMATURE GRAN PERCENT AUTO 0.2 % (0.0-0.7); LYMPHOCYTES ABSOLUTE AUTO 1.93 K/uL (0.8-3.3); LYMPHOCYTES PERCENT AUTO 22.2 % (11.4-47.7); MONOCYTES ABSOLUTE AUTO 0.73 K/uL (0.20-0.90); MONOCYTES PERCENT AUTO 8.4 % (3.3-12.6); NEUTROPHILS ABSOLUTE AUTO 4.93 K/uL (1.0-7.6); NEUTROPHILS PERCENT AUTO 56.7 % (40.0-78.1); PLATELET COUNT,PLT 178 K/uL (130-375); RED BLOOD CELL COUNT 3.81 M/uL (3.77-5.24); WHITE BLOOD CELL COUNT,WBC 8.7 K/uL (3.2-11.0)
[2025-02-13 06:01] LABS: IMMATURE GRAN ABSOLUTE AUTO 0.02 K/uL (0.00-0.23)
[2025-02-13 06:03] LABS: A/G RATIO 1.0 (1.2-2.2); ALANINE AMINOTRANSFERASE,ALT 114 U/L (12-78); ASPARTATE AMNIOTRANSFERASE,AST 56 U/L (15-37); BILIRUBIN TOTAL 0.3 mg/dL (0.2-1.0); BLOOD UREA NITROGEN,BUN 11 mg/dL (7-18); CARBON DIOXIDE,CO2 30 mmol/L (21-32); CHLORIDE,CL 106 mmol/L (100-108); CREATININE 0.6 mg/dL (0.6-1.0); EST CRCL DRUG DOSING (CG) 71.03 mL/min; ESTIMATED GFR 94 mL/min (>60); GLUCOSE RANDOM 106 mg/dL (74-106); POTASSIUM,K 3.1 mmol/L (3.6-5.2); PROTEIN TOTAL,TP 5.9 g/dL (6.4-8.2); SODIUM,NA 144 mmol/L (140-148)
[2025-02-13] MEDS ORDERED: Sodium Chloride 0.9% 10 ML Syringe IV PRN (10:00)
[2025-02-13] MEDS: Potassium Chloride 20 MEQ Tab.ER PO ONE (12:30)
[2025-02-14 05:53] LABS: BASOPHILS ABSOLUTE AUTO 0.04 K/uL (0.00-0.10); BASOPHILS PERCENT AUTO 0.6 % (0.1-1.3); EOSINOPHILS ABSOLUTE AUTO 1.01 K/uL (0.00-0.40); EOSINOPHILS PERCENT AUTO 15.1 % (0.0-5.4); IMMATURE GRAN PERCENT AUTO 0.3 % (0.0-0.7); LYMPHOCYTES ABSOLUTE AUTO 2.25 K/uL (0.8-3.3); LYMPHOCYTES PERCENT AUTO 33.7 % (11.4-47.7); MONOCYTES ABSOLUTE AUTO 0.70 K/uL (0.20-0.90); MONOCYTES PERCENT AUTO 10.5 % (3.3-12.6); NEUTROPHILS ABSOLUTE AUTO 2.66 K/uL (1.0-7.6); NEUTROPHILS PERCENT AUTO 39.8 % (40.0-78.1); PLATELET COUNT,PLT 173 K/uL (130-375); RED BLOOD CELL COUNT 3.73 M/uL (3.77-5.24); WHITE BLOOD CELL COUNT,WBC 6.7 K/uL (3.2-11.0)
[2025-02-14 06:02] LABS: IMMATURE GRAN ABSOLUTE AUTO 0.02 K/uL (0.00-0.23)
[2025-02-14 06:12] LABS: A/G RATIO 0.9 (1.2-2.2); ALANINE AMINOTRANSFERASE,ALT 87 U/L (12-78); ASPARTATE AMNIOTRANSFERASE,AST 33 U/L (15-37); BILIRUBIN TOTAL 0.2 mg/dL (0.2-1.0); BLOOD UREA NITROGEN,BUN 12 mg/dL (7-18); CARBON DIOXIDE,CO2 30 mmol/L (21-32); CHLORIDE,CL 107 mmol/L (100-108); CREATININE 0.5 mg/dL (0.6-1.0); EST CRCL DRUG DOSING (CG) 85.24 mL/min; ESTIMATED GFR 98 mL/min (>60); GLUCOSE RANDOM 109 mg/dL (74-106); POTASSIUM,K 3.6 mmol/L (3.6-5.2); PROTEIN TOTAL,TP 6.0 g/dL (6.4-8.2); SODIUM,NA 144 mmol/L (140-148)
[2025-02-14 12:00] VITALS: BP 164/57; PULSE 64
[2025-02-17 16:38] LABS: HEPATITIS B SURFACE ANTIBODY <3.10 IU/L
[2025-02-17 16:38] LABS: HEPATITIS BE ANTIGEN Negative (Negative)
[2025-02-17 17:00] LABS: HEPATITIS B CORE ANTIBODY,IGM Negative (Negative)
[2025-02-17 18:11] LABS: HEPATITIS A ANTIBODY, IGM Negative (Negative); HEPATITIS C AB CIA INTERP Negative (Negative); HEPATITIS C ANTIBODY CIA INDEX 0.03 IV
[2025-02-17 19:57] LABS: HEPATITIS A ANTIBODIES, TOTAL Positive (Negative)
== END 2025-02-14 12:00 | disposition home or self-care (01) | DRG 690 ==
LOC: JP.ED 08:04 → JP.MS 14:33 → UNDOADMIN 14:33 → JP.ICU 14:33
PROVIDERS: ADMIT Student in an Organized Health Care Education/Training Program; ATTEND Student in an Organized Health Care Education/Training Program
DX: N39.0 Urinary tract infection, site not specified (principal); N30.00 Acute cystitis without hematuria; D68.00 Von Willebrand disease, unspecified; A69.20 Lyme disease, unspecified; Z66 Do not resuscitate; R74.01 Elevation of levels of liver transaminase levels; R53.1 Weakness; M17.0 Bilateral primary osteoarthritis of knee; I10 Essential (primary) hypertension; F41.9 Anxiety disorder, unspecified; H26.9 Unspecified cataract; H54.7 Unspecified visual loss; I48.91 Unspecified atrial fibrillation; E78.00 Pure hypercholesterolemia, unspecified; K59.09 Other constipation; Z86.73 Personal history of transient ischemic attack (TIA), and cerebral infarction without residual deficits; Z88.8 Allergy status to other drugs, medicaments and biological substances; Z98.890 Other specified postprocedural states; Z79.899 Other long term (current) drug therapy; Z88.2 Allergy status to sulfonamides; Z90.49 Acquired absence of other specified parts of digestive tract; Z90.710 Acquired absence of both cervix and uterus
CPT/HCPCS: 36415; 71045 ×2; 71260 ×2; 74177 ×2; 80053; 81001; 83605; 85025; 85610; 86140; 86705; 86706; 96361; 96365; 99285; A9270; J0696; J7030; Q9967; 80074; 86708; 87350; 99222; 99232; 99238